=== PATIENT | male | born 1965 | race Caucasian/White ===

== ENCOUNTER 2016-07-11 08:24 | Emergency (ER) | payer OTHER | END 2016-07-11 09:24 | disposition home or self-care (01) | LOC: FER 08:24 | DX: J45.41 Moderate persistent asthma with (acute) exacerbation (principal); Z88.0 Allergy status to penicillin; Z79.51 Long term (current) use of inhaled steroids | CPT/HCPCS: 36415; 80053; 80074; 85025; J2930 ==